=== PATIENT | male | born 2000 | race Two or more races ===

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

== ENCOUNTER 2022-04-07 07:21 | Day surgery (SDC) | payer MEDICAID ==
[~2022-04-07 07:21] MED LIST: Bupivacaine 0.5%/EPINEPHrine 1:200,000 50 ML MDV ONE
[2022-04-07] MEDS ORDERED: Midazolam 1 MG/ML 2 ML SDV ONE (07:27)
[2022-04-07] MEDS ORDERED: fentaNYL 50 MCG/ML SDV ONE (07:27)
[2022-04-07] MEDS ORDERED: Propofol 200 MG/20 ML SDV ONE ×3 (07:28→09:35)
[2022-04-07] MEDS ORDERED: Acetaminophen 500 MG Tab PO ONE (08:00)
[2022-04-07] MEDS ORDERED: Lactated Ringers 1,000 ML IV SCH (08:00)
[2022-04-07] MEDS ORDERED: Clindamycin Phosphate in D5W 900 MG in Premix Bag 1 BAG IV ONE ×2 (08:15)
[2022-04-07] MEDS ORDERED: fentaNYL 100 MCG/2 ML SDV ONE (08:46)
[2022-04-07] MEDS ORDERED: Ondansetron 4 MG/2 ML SDV ONE (09:33)
[2022-04-07] MEDS ORDERED: Dexamethasone 4 MG/ML SDV ONE (09:33)
[2022-04-08] MEDS ORDERED: Lactated Ringers 1,000 ML IV SCH (08:00)
== END 2022-04-07 11:55 | disposition home or self-care (01) ==
LOC: JP.SDS 07:21
PROVIDERS: ATTEND Student in an Organized Health Care Education/Training Program
DX: R59.0 Localized enlarged lymph nodes (principal); E11.9 Type 2 diabetes mellitus without complications; C81.90 Hodgkin lymphoma, unspecified, unspecified site; F90.9 Attention-deficit hyperactivity disorder, unspecified type; F17.210 Nicotine dependence, cigarettes, uncomplicated; F41.9 Anxiety disorder, unspecified; F32.A Depression, unspecified; Z98.890 Other specified postprocedural states; Z79.4 Long term (current) use of insulin; Z79.899 Other long term (current) drug therapy; Z88.0 Allergy status to penicillin
CPT/HCPCS: 38510; 76998; A9270; J1100; J2250; J2405; J2704; J3010; J3490; J7120